=== PATIENT | female | born 1950 | race Caucasian/White ===

== ENCOUNTER 2017-05-28 09:55 | Day surgery (SDC) | payer MEDICARE ==
[2017-05-28] MEDS ORDERED: LIDOCAINE 2% MDV (20MG/ML) 20ML VIAL IV ONE (14:23)
[2017-05-28] MEDS ORDERED: PROPOFOL 10 MG/ML VIAL IV ONE (14:23)
--- NOTE | 2017-05-31 12:30 | Operative Note ---
DATE OF SURGERY: 05/28/2017 SURGEON: Clau León MD OPERATION: COLONOSCOPY attempt. INDICATIONS: This is a 66-year-old female with history of colon polyps who presented for surveillance colonoscopy. POSTOPERATIVE DIAGNOSES: 1. Poor bowel preparation, cannot go beyond descending colon because of the poor prep. 2. The visualized portions of the colon were otherwise normal. ANESTHESIA: Sedation is per Anesthesia. Pulse oximetry was monitored throughout the procedure to maintain O2 saturation of 90% or greater. Supplemental oxygen was administered via nasal cannula. Cardiac and vital signs were monitored throughout the duration of the procedure, and they were stable. The procedure of colonoscopy and risks and alternatives of the procedure, including the risk of bleeding and perforation, among others, were explained to the patient who voiced understanding and agreed to have the procedure done. Physical examination was performed, and the patient was found stable for sedation. PROCEDURE: The patient was placed in the left lateral position. Sedation was initiated. A digital rectal exam was performed and showed some mild external hemorrhoids with no palpable rectal masses. An Olympus PCF-180AL colonoscope was then inserted into the rectum under direct visualization. It was advanced to the descending colon without difficulty. The colonoscopy was limited because of the poor bowel preparation, cannot see the colonic mucosa clear. The colonoscope was then withdrawn and the visualized portions of the colonic mucosa appeared normal. In the rectum, just grade 1 internal hemorrhoids. RECOMMENDATION: We will give her a 2-day bowel preparation for the rescheduled colonoscopy to be scheduled later on. Thank you for allowing me to participate in the care of your patient. CC: Dr. Ayala SUTHERLAND
== END 2017-05-28 12:06 | disposition home or self-care (01) ==
LOC: HOP 09:55
PROVIDERS: ATTEND Internal Medicine Gastroenterology
DX: Z12.11 Encounter for screening for malignant neoplasm of colon (principal); Z86.010 Personal history of colon polyps; Z53.09 Procedure and treatment not carried out because of other contraindication

== ENCOUNTER 2017-08-06 06:30 | Day surgery (SDC) | payer MEDICARE ==
[2017-08-06] MEDS ORDERED: PROPOFOL 10 MG/ML VIAL IV ONE (06:31)
[2017-08-06] MEDS ORDERED: LIDOCAINE 2% MDV (20MG/ML) 20ML VIAL IV ONE (06:31)
--- NOTE | 2017-08-09 09:01 | Operative Note ---
DATE OF SURGERY: 08/06/2017 SURGEON: Clau León MD OPERATION: COLONOSCOPY. INDICATIONS: This is a 66-year-old female with average risk for colorectal cancer who presented for screening colonoscopy. POSTOPERATIVE DIAGNOSIS: Poor bowel preparation. Cannot exclude any significant lesions. ANESTHESIA: Sedation is per Anesthesia. Pulse oximetry was monitored throughout the procedure to maintain O2 saturation of 90% or greater. Supplemental oxygen was administered via nasal cannula. Cardiac and vital signs were monitored throughout the duration of the procedure, and they were stable. The procedure of colonoscopy and risks and alternatives of the procedure, including the risk of bleeding and perforation, among others, were explained to the patient who voiced understanding and agreed to have the procedure done. Physical examination was performed, and the patient was found stable for sedation. PROCEDURE: The patient was placed in the left lateral position. Sedation was initiated. A digital rectal exam was performed and showed some mild external hemorrhoids with no palpable rectal masses. An Olympus PCF-180AL colonoscope was then inserted into the rectum under direct visualization. It was advanced to the cecum without difficulty. The ileocecal valve and appendiceal orifice were identified and photographed. The colonic mucosa was carefully examined upon introduction of the colonoscope. The bowel preparation was poor in the sigmoid, descending, transverse, and descending colon. The colonoscope was then withdrawn while carefully examining the colonic mucosal surfaces. No significant lesions were noted. In the rectum, retroflexion was performed and grade 1 internal hemorrhoids were noted. The colonoscope was then withdrawn and the procedure was terminated. The patient tolerated the procedure well without any immediate complications. She remained with stable vital signs and was transferred to the recovery room. RECOMMENDATIONS: 1. The patient should be on a high-fiber diet. 2. The patient is to have a repeat colonoscopy within a year with modified bowel preparation. Thank you for allowing me to participate in the care of your patient. CC: Dr. Ayala SUTHERLAND
== END 2017-08-06 08:36 | disposition home or self-care (01) ==
LOC: HOP 06:30
PROVIDERS: ATTEND Internal Medicine Gastroenterology
DX: Z12.11 Encounter for screening for malignant neoplasm of colon (principal); Z53.09 Procedure and treatment not carried out because of other contraindication
CPT/HCPCS: 00812; G0121

== ENCOUNTER 2019-02-09 08:30 | Day surgery (SDC) | payer BC ==
[2019-02-09] MEDS ORDERED: PROPOFOL 10 MG/ML VIAL IV ONE (08:31)
[2019-02-09] MEDS ORDERED: LIDOCAINE 2% MDV (20MG/ML) 20ML VIAL IV ONE (08:31)
--- NOTE | 2019-02-10 09:50 | Operative Note ---
OPERATION: COLONOSCOPY with cold snare polypectomy. PREOPERATIVE DIAGNOSIS: Personal history of colon polyps, history of poor prep. POSTOPERATIVE DIAGNOSIS: Cecal polyp. PREPARATION QUALITY: Excellent. ESTIMATED BLOOD LOSS: Minimum. SPECIMENS: Cecal polyp. COMPLICATIONS: None apparent. PROCEDURE: After informed consent was obtained from the patient, she was placed in the left lateral decubitus position in the endoscopy suite, sedated and monitored. Digital rectal exam was unremarkable. A well-lubricated [id number] colonoscope was inserted into the rectum and advanced to the cecum. Preparation quality was excellent. The cecum revealed a sessile polyp removed in piecemeal fashion with a cold snare. This polyp was approximately 1 cm in diameter. The remainder of the cecum, ascending colon, transverse colon, descending colon, sigmoid colon, and rectum were otherwise unremarkable. Forward and J-turn views of the rectum and anorectum were unrevealing. The endoscope was straightened, the rectal ampulla deflated, and the endoscope was removed. RECOMMENDATIONS: The patient should resume her medications and diet. She will require repeat exam in 3-5 years pending tissue histology. As always, thank you for allowing me to participate in the healthcare of your patients. KOKO
== END 2019-02-09 11:10 | disposition home or self-care (01) ==
LOC: HOP 08:30
PROVIDERS: ATTEND Internal Medicine Gastroenterology
DX: Z12.11 Encounter for screening for malignant neoplasm of colon (principal); Z86.010 Personal history of colon polyps; D12.0 Benign neoplasm of cecum; E03.9 Hypothyroidism, unspecified; G62.9 Polyneuropathy, unspecified